=== PATIENT | male | born 1965 ===

== ENCOUNTER 2021-10-30 09:53 | Emergency (ER) | payer OTHER ==
[2021-10-30] MEDS ORDERED: KETOROLAC 60 MG/2 ML INJ IM ONE (10:49)
[2021-10-30] MEDS ORDERED: dexAMETHasone 4 MG/ML VIAL IM ONE (10:49)
[2021-10-30] MEDS ORDERED: METOCLOPRAMIDE 10 MG TAB PO ONE (10:50)
[2021-10-30] MEDS ORDERED: diphenhydrAMINE 25 MG CAP PO ONE (10:50)
--- NOTE | 2021-10-30 12:01 | Emergency Department Report ---
ED Headache HPI - General Chief Complaint: Headache Stated Complaint: MIGRAINE/EARACHE Time Seen by Provider: 10/30/21 10:48 - History of Present Illness Initial Comments: 56-year-old male presents to the emergency department for evaluation of few day history of worsening headaches to left side only, pain in ear, and eye redness. He states that he is [place] from [place] and has a history of migraines, so when he started to have headache couple days ago, he contacted his primary care provider in [place] who prescribed him Augmentin, Topamax, and as neededrizatriptan. He states that he started medications 2 days ago but has not had any improvement. He states that he feels like he has pressure to the left side of his head and ear that is worse when he lies on that side. He states that he had some nausea and photophobia yesterday but denies vomiting, dizziness, and vision changes. Timing/Duration: other Quality: severe (3 to 4 days) Associated Symptoms: facial pain, nausea/vomiting, nasal congestion, sinus infection. denies: fever/chills, flushing, loss of consciousness, nasal drainage, numbness in legs/feet, rash, seizures, stiff neck, vision changes, weakness Allergies/Adverse Reactions: Allergies No Known Allergies Allergy (Verified 10/30/21 10:06) Home Medications: Ambulatory Orders Butalb/Acetaminophen/Caffeine [Fioricet 50-300-40 mg CAP] 1 cap PO Q6HR PRN #12 cap 10/30/21 methylPREDNISolone [Medrol 4MG DOSEPAK (21 tabs)] 4 mg PO DAILY #1 pack 10/30/21 ED Review of Systems ROS: Stated complaint: MIGRAINE/EARACHE Other details as noted in HPI Comment: All other systems reviewed and negative Constitutional: denies: chills, fever Eyes: eye pain, eye discharge. denies: vision change ENT: ear pain, congestion. denies: throat pain, dental pain, hearing loss, epistaxis Respiratory: cough. denies: shortness of breath, SOB with exertion, SOB at rest Cardiovascular: denies: chest pain, palpitations, dyspnea on exertion Gastrointestinal: nausea. denies: abdominal pain, vomiting, diarrhea, hematemesis, melena, hematochezia Musculoskeletal: denies: back pain Skin: denies: rash, lesions Neurological: headache. denies: weakness, numbness, paresthesias, confusion, abnormal gait ED Past Medical Hx - Past Medical History Previous Medical History?: No - Medications Home Medications: Home Medications Medication Instructions Recorded Confirmed Last Taken Type Butalb/Acetaminophen/Caffeine 1 cap PO Q6HR PRN #12 cap 10/30/21 Unknown Rx [Fioricet 50-300-40 mg CAP] methylPREDNISolone [Medrol 4MG 4 mg PO DAILY #1 pack 10/30/21 Unknown Rx DOSEPAK (21 tabs)] ED Physical Exam - General Limitations: No Limitations General appearance: alert, in no apparent distress - Head Head exam: Present: atraumatic, normocephalic - Eye Eye exam: Present: EOMI, conjunctival injection. Absent: periorbital swelling, periorbital tenderness - ENT ENT exam: Present: mucous membranes moist, TM's normal bilaterally, normal external ear exam. Absent: normal exam (Left nasal mucosal edema and turbinate swelling. Tenderness to frontal and maxillary areas to left side only.), normal orophraynx (Erythema to posterior oropharynx) - Neck Neck exam: Present: normal inspection. Absent: lymphadenopathy - Respiratory Respiratory exam: Present: normal lung sounds bilaterally. Absent: respiratory distress, wheezes, rales, rhonchi, stridor, chest wall tenderness, accessory muscle use - Cardiovascular Cardiovascular Exam: Present: regular rate, normal heart sounds - GI/Abdominal GI/Abdominal exam: Present: soft, normal bowel sounds. Absent: distended, tenderness, guarding, rebound, rigid - Extremities Exam Extremities exam: Present: normal inspection, normal capillary refill. Absent: pedal edema, joint swelling, calf tenderness - Back Exam Back exam: Present: normal inspection. Absent: CVA tenderness (R), CVA tenderness (L) - Neurological Exam Neurological exam: Present: alert, oriented X3, CN II-XII intact, normal gait. Absent: motor sensory deficit, reflexes normal - Expanded Neurological Exam Expanded Patient oriented to: Present: person, place, time Speech: Present: fluid speech Cranial nerves: EOM's Intact: Normal, Gag Reflex: Normal, Tongue Deviation: Normal Ataxia: Absent: yes Motor strength exam: RUE: 5, LUE: 5, RLE: 5, LLE: 5 Best Eye Response ([place]): (4) open spontaneously Best Motor Response ([place]): (6) obeys commands Best Verbal Response ([place]): (5) oriented [place] Total: 15 - Psychiatric Psychiatric exam: Present: normal affect, normal mood - Skin Skin exam: Present: warm, dry, intact, normal color ED Course Vital Signs 10/30/21 10:05 Temperature 97.5 F L Pulse Rate 74 Respiratory 16 Rate Blood Pressure 163/107 O2 Sat by Pulse 98 Oximetry - Reevaluation(s) Reevaluation #1: 10/30/21 12:05 Headache some improved. Patient declined CAT scan stating that headache similar to headache he usually has just worse. ED Medical Decision Making - Medical Decision Making 56-year-old male presents to the emergency department for evaluation of few day history of worsening headaches to left side only, pain in ear, and eye redness. He states that he is [place] from [place] and has a history of migraines, so when he started to have headache couple days ago, he contacted his primary care provider in [place] who prescribed him Augmentin, Topamax, and as neededrizatriptan. He states that he started medications 2 days ago but has not had any improvement. He states that he feels like he has pressure to the left side of his head and ear that is worse when he lies on that side. He states that he had some nausea and photophobia yesterday but denies vomiting, dizziness, and vision changes. Headache minimally improved. Exam noted to be consistent with sinus headache, so patient will be treated with Medrol Dosepak and Fioricet to use as needed. He was advised to continue Augmentin and Topamax as prescribed by his primary care provide but not use Rizatripotan with Fiorcet. He is advised to return to the emergency department for any concerning symptoms and follow-up with primary care provider for further evaluation and management. He verbalized understanding of and agreement with plan of care. Critical care attestation.: If time is entered above; I have spent that time in minutes in the direct care of this critically ill patient, excluding procedure time. ED Disposition Clinical Impression: Headache Qualifiers: Headache type: unspecified Headache chronicity pattern: acute headache Intractability: not intractable Qualified Code(s): R51.9 - Headache, unspecified Disposition: 01 HOME / SELF CARE / HOMELESS Is pt being admited?: No Does the pt Need Aspirin: No Condition: Stable Instructions: Sinus Headache, [id number], Migraine Headache, [id number], General Headache Without Cause, [id number] Additional Instructions: Take medications as prescribed. Follow-up with primary care provider for further evaluation and management. Turn to the emergency department for worsening symptoms. Prescriptions: Butalb/Acetaminophen/Caffeine [Fioricet 50-300-40 mg CAP] 1 cap PO Q6HR PRN #12 cap PRN Reason: Headache methylPREDNISolone [Medrol 4MG DOSEPAK (21 tabs)] 4 mg PO DAILY #1 pack Referrals: SHAY JOHNSON MD [Referring] - 3-5 Days Time of Disposition: 12:10
[2021-10-30] MEDS ORDERED: BUTALB/ACETAMINOPHEN/CAFFEINE TAB PO ONE (12:02)
[2021-10-30 12:19] VITALS: BP 155/102
== END 2021-10-30 12:16 | disposition home or self-care (01) ==
LOC: ED 09:53
DX: R51.9 Headache, unspecified (principal)
CPT/HCPCS: 96372; 99282; J1100; J1885